=== PATIENT | female | born 1960 | race Caucasian/White ===

== ENCOUNTER 2016-09-08 11:00 | Day surgery (SDC) ==
[2016-08-31 11:29] LABS: HEMATOCRIT 40.9 % (37.0-47.0); HEMOGLOBIN 13.6 g/dL (12.0-16.0); MCH 29.1 PG (27-31); MCHC 33.3 g/dL (33-37); MCV 87.4 FL (81-99); RBC 4.68 XMIL (4.2-5.4)
[2016-08-31 11:54] LABS: AGAP 12; BUN 10 mg/dL (8-22); CALCIUM 9.4 mg/dL (8.8-10.2); CHLORIDE 100 mmol/L (98-107); COSMO 278; POTASSIUM 4.2 mmol/L (3.5-5.1); SODIUM 140 mmol/L (136-145); TCO2 28 mmol/L (25-35)
--- NOTE | 2016-08-31 11:57 | EKG Report ---
Test Performed on : 08/31/2016 11:18:57 AM Test Reason : PAT Blood Pressure : / mmHG Vent. Rate : 067 BPM Atrial Rate : 067 BPM P-R Int : 128 ms QRS Dur : 092 ms QT Int : 412 ms P-R-T Axes : 034 022 038 degrees QTc Int : 435 ms Normal sinus rhythm. with sinus arrhythmia. Minimal voltage criteria for LVH, may be normal variant Borderline ECG No previous ECGs available Confirmed by Jordan GIANG, Tod Raymond ([id number]) on 09/01/2016 5:22:36 PM
[2016-08-31 12:00] LABS: ALKALINE PHOSPHATASE 67 U/L (32-104); DIRECT BILIRUBIN < 0.20 mg/dL (0.00-0.20); GOT 15 U/L (10-30); GPT 11 U/L (10-36); LIPASE 38 U/L (13-60); TOTAL BILIRUBIN 0.28 mg/dL (0.20-1.00)
[2016-09-08] MEDS ORDERED: PEPCID ONE (11:15)
[2016-09-08] MEDS ORDERED: LR 1,000 ML ONE ×3 (11:15→16:23)
[2016-09-08] MEDS ORDERED: REGLAN ONE (11:15)
[2016-09-08] MEDS ORDERED: CLINDAMYCIN 900 MG/NS 50 ML ONE (11:29)
[2016-09-08] MEDS ORDERED: XYLOCAINE 1% ONE (13:27)
[2016-09-08] MEDS ORDERED: SODIUM CHLORIDE 0.9% ONE (13:27)
[2016-09-08] MEDS ORDERED: MARCAINE 0.25% PF/EPI 1:200,000 ONE (13:27)
[2016-09-08] MEDS ORDERED: FENTANYL ONE (14:46)
[2016-09-08] MEDS ORDERED: VERSED ONE (14:47)
[2016-09-08] MEDS ORDERED: DIPRIVAN 1% ONE (14:47)
[2016-09-08] MEDS ORDERED: MORPHINE ONE (16:12)
[2016-09-08] MEDS ORDERED: ZOFRAN ONE (16:22)
[2016-09-08] MEDS ORDERED: NEOSTIGMINE ONE (16:22)
[2016-09-08] MEDS ORDERED: QUELICIN (DOSE) ONE (16:23)
[2016-09-08] MEDS ORDERED: ROBINUL ONE (16:23)
[2016-09-08] MEDS ORDERED: ZEMURON ONE (16:23)
[2016-09-08] MEDS ORDERED: XYLOCAINE-MPF 2% ONE (16:23)
[2016-09-08] MEDS ORDERED: DECADRON ONE (16:23)
--- NOTE | 2016-09-08 16:39 | OPERATIVE NOTE ---
PROCEDURE DATE: 09/08/2016 DATE OF SURGERY: 09/08/2016. PREOPERATIVE DIAGNOSES: 1. Symptomatic cholelithiasis. 2. Abnormal mammogram of the right breast. POSTOPERATIVE DIAGNOSES: 1. Symptomatic cholelithiasis with chronic cholecystitis. 2. Abnormal mammogram. PROCEDURE PERFORMED: 1. Laparoscopic cholecystectomy with intraoperative cholangiogram. 2. Ultrasound-guided core needle biopsy of right lateral breast mass. COMPLICATION: None. ESTIMATED BLOOD LOSS: 20 mL. ANESTHESIA: General. SPECIMENS: 1. Gallbladder. 2. Core needle biopsy of right lateral breast. INDICATIONS: This is a 56-year-old female with right upper quadrant abdominal pain for several weeks. Symptoms have become more severe. Ultrasound consistent with stones. Cholecystectomy is indicated. She also had a recent screening mammogram that showed an area of dilated architectural distortion with ultrasound showing dilated ducts and possible intraductal mass. OPERATIVE FINDINGS: 1. There is a densely inflamed gallbladder with duodenum and omentum adherent to this. There was a dilated cystic duct and dense inflammatory adhesions between the gallbladder and the liver bed. 2. Interpretation of intraoperative cholangiogram: There was a rapid flow of contrast through a non-obstructed cystic duct of moderate length. There is rapid flow into a nondilated common bile duct with free flow in the duodenum. Pancreatic duct was not visualized. There were no filling defects. The common hepatic and bilateral second and third degree biliary radicals were visualized and appeared normal. 3. Focused ultrasound examination of the right breast showed a focal area of dilated ducts that coalesce up towards the areolar-nipple complex. There were some areas of haziness noted within the lumen of the duct, but I could not identify a discrete mass. Several biopsies of this area of dilated ducts was taken. OPERATIVE NOTE: The risks, benefits and alternatives were discussed with the patient. She consented to the procedure, seen in the preoperative area, and surgery performed was confirmed. The right breast was marked. She was taken to the operating room, placed in the supine position. General anesthesia was induced without complication. All bony prominence were padded. Her abdomen is prepped with chlorhexidine solution, draped in usual fashion, including her right breast. A time-out was performed between nursing, surgical, anesthesia staff; all agreed on procedure to be performed. After a time-out, periumbilical block was made. There is previous lower curvilinear infraumbilical incision. We re-incised this, carried the dissection through the fascia and into the fascia along the midline in a controlled fashion. A 12 mm Hernan trocar was placed and abdomen was insufflated to 15 mmHg. We placed 3 trocars 5 mm after infiltration to the peritoneum; 1 at the epigastric location, 1 in midclavicular line off the costal margin and 1 more laterally. We grasped the gallbladder and lifted it cephalad. We carefully took down the adherent duodenum and omental adhesions to the gallbladder exposing the infundibulum. We then meticulously dissected the lower third of the gallbladder as the more distal cystic duct was very inflamed with friable bleeding inflammatory adhesions to this area. We were able to encircle the infundibulum. We dissected this up and down to identify the cystic artery. We clipped this and divided it. This facilitated our exposure. We ultimately were able to expose for a wide segment the cystic duct. With infundibular junction, the critical view of safety was established with liver visualized through this. There were no other tubular structures noted. After dissection, the caliber of the duct was more appropriate. We were able to get a clip across and perform cholangiogram with above findings. After this, we triply clipped the cystic duct, divided this, and removed the gallbladder from the gallbladder fossa without complication. There were no spillage of bile or stones. Placed in EndoCatch bag. Copiously irrigated the abdomen. Given the inflammatory nature and the dilated nature of the cystic duct, we left a Yusef drain and secured this to a nylon suture, brought it out through the lateral port and left in the gallbladder fossa. We desufflated the abdomen after removing the remaining trocars under direct visualization. We brought the gallbladder out through umbilical incision. We closed the fascia with 0 Vicryl sutures, skin with 4-0 Monocryl. Dermabond was applied. We excluded all this; the breasts were excluded through all this procedure as well. There was no contamination or spillage of bile. We changed our gloves, and using fresh instruments using a sterilely draped ultrasound, I performed a focused ultrasound of the right breast with the above findings. Breast exam shows inframammary scar from a previous excisional biopsy and some slight inversion of the nipple, but no other skin changes and no other palpable masses. After identifying the area of dilated ducts, multiple core needle biopsies of this area were made after making a skin baljit with an 11- blade scalpel, and we passed these off for permanent section. We held pressure. There was hemostasis noted. At the conclusion, all sponge, instrument and needle counts were correct x2. She tolerated the procedure well. There are no identified complications. Transferred to PACU in good condition. I spoke with the family. MTDD
[2016-09-08] MEDS ORDERED: NORCO-7.5 ONE (17:06)
[2016-09-08] MEDS ORDERED: ZOFRAN IV PRN (17:22)
[2016-09-08] MEDS ORDERED: NORCO-7.5 PO PRN (17:22)
[2016-09-08 18:00] VITALS: BP 144/82
[2016-09-09] MEDS ORDERED: COZAAR PO SCH (09:00)
[2016-09-09] MEDS ORDERED: ESTRACE PO SCH (09:00)
== END 2016-09-08 18:01 | disposition home or self-care (01) ==
LOC: OR 11:00
PROVIDERS: ATTEND Surgery
DX: K80.10 Calculus of gallbladder with chronic cholecystitis without obstruction (principal); N60.01 Solitary cyst of right breast; I10 Essential (primary) hypertension
CPT/HCPCS: 74300; 80048; 80076; 83690; 85027; 88304; 88305; 93005; 93010; C1751; J0330; J1100; J2250; J2270; J2405; J3010; J7120; Q9966; J2710; S0077